=== PATIENT | female | born 1930 | race American Indian/Alaskan Native ===

== ENCOUNTER 2017-06-09 20:31 | Emergency (ER) | payer MEDICARE ==
[2017-06-09 20:53] VITALS: BP 192/78; PULSE 81; RESP 20; TEMP 98.7; O2SAT 97
--- NOTE | 2017-06-09 21:12 | C.PDOC ---
History Of Present Illness 86 year old female presents to the ER after she struck her left eyebrow on a dresser last night while walking to the bathroom. Denies LOC or change in mental status. Time Seen by Provider: 06/09/17 21:02 Chief Complaint (Nursing): Headache History Per: Patient History/Exam Limitations: no limitations Onset/Duration Of Symptoms: Days Current Symptoms Are (Timing): Still Present Preceeding Symptoms: None Associated Symptoms: denies: Photophobia, Blurred Vision, Nausea, Vomiting, Extremity Weakness Recent travel outside of the [place]: No Past Medical History Reviewed: Historical Data, Nursing Documentation, Vital Signs Vital Signs: Last Vital Signs Temp 98.7 F 06/09/17 20:32 Pulse 81 06/09/17 20:32 Resp 20 06/09/17 20:32 BP 192/78 H 06/09/17 20:32 Pulse Ox 97 06/09/17 21:12 - Medical History PMH: HTN Surgical History: No Surg Hx Family History: States: Unknown Family Hx - Social History Hx Alcohol Use: No Hx Substance Use: No Review Of Systems Eyes: Positive for: Vision Change Musculoskeletal: Positive for: Other (Chronic bilateral trapezius tenderness, take occasional ecotrin for pain) Skin: Positive for: Other (Contusion) Neurological: Negative for: Weakness, Numbness, Altered Mental Status, Dizziness Physical Exam - Physical Exam Appears: Non-toxic, No Acute Distress Skin: Normal Color, Warm, Dry Head: Normacephalic, Other (Sub centimeter contusion to left lateral eyebrow) Eye(s): bilateral: Normal Inspection, PERRL, EOMI Nose: Normal Oral Mucosa: Moist Neck: Normal, Supple Chest: Symmetrical, No Tenderness Cardiovascular: Rhythm Regular Respiratory: Normal Breath Sounds, No Rales, No Rhonchi, No Wheezing Gastrointestinal/Abdominal: Soft, No Tenderness Extremity: Normal ROM (x4) Neurological/Psych: Oriented x3, Normal Speech, Normal Cognition ED Course And Treatment O2 Sat by Pulse Oximetry: 97 (room air) Pulse Ox Interpretation: Normal Progress Note: Motrin administered. Medical Decision Making Medical Decision Making: superficial contusion to L eyebrow las night, no sig injury no s/s of brain injury chronic b/l trapezius tenderness, pending MRI later this week by PMD no indication for CT now, NSAIDS and ice therapy educated. Disposition Doctor Will See Patient In The: Office Counseled Patient/Family Regarding: Studies Performed, Diagnosis - Disposition Referrals: Rhianna Tijerina MD [Staff Provider] - Disposition: HOME/ ROUTINE Disposition Time: 21:11 Condition: GOOD Additional Instructions: continue ice therapy 1/2 hour per hour, nothing hot. Motrin 400-600 mg every 6 hours as needed for pain Follow-up with your PMD for outpatient MRI as needed. Instructions: Cervical Strain (DC), Contusion in Adults (ED) Forms: Mobile [employer] ([place]) - Clinical Impression Clinical Impression: Contusion of eyebrow, Trapezius muscle strain - Scribe Statement The provider has reviewed the documentation as recorded by the Scribe aEn Harvey All medical record entries made by the Scribe were at my direction and personally dictated by me. I have reviewed the chart and agree that the record accurately reflects my personal performance of the history, physical exam, medical decision making, and the department course for this patient. I have also personally directed, reviewed, and agree with the discharge instructions and disposition.
== END 2017-06-09 21:21 | disposition home or self-care (01) ==
LOC: C.ER 20:31
DX: S00.12XA Contusion of left eyelid and periocular area, initial encounter (principal); S16.1XXA Strain of muscle, fascia and tendon at neck level, initial encounter; W22.03XA Walked into furniture, initial encounter; Y93.89 Activity, other specified; Y92.008 Other place in unspecified non-institutional (private) residence as the place of occurrence of the external cause

== ENCOUNTER 2017-06-13 10:11 | Inpatient (IN) | payer OTHER ==
--- NOTE | 2017-06-13 11:27 | C.PDOC ---
History Of Present Illness 86 year old female presents to the ED for evaluation of generalized weakness and dizziness which began earlier today. Patient states she suffered a fall in her bathroom and hit the side of her head, and was evaluated in this ED on . Patient underwent MRI for her neck pain which she had been experiencing for "a while." Today, patient states she felt unwell while waiting at a bus stop earlier today. While she was at home, patient felt dizzy and like she "could not hold on" and dropped a glass of water. Patient denies chest pain, shortness of breath, extremity numbness/weakness. Time Seen by Provider: 06/13/17 10:38 Chief Complaint (Nursing): Weakness/Neurological Deficit History Per: Patient History/Exam Limitations: no limitations Current Symptoms Are (Timing): Still Present Possible Causative Factor(s): Decreased PO Intake Fall Associated With With Symptoms: Yes Past Medical History Reviewed: Historical Data, Nursing Documentation, Vital Signs Vital Signs: Last Vital Signs Temp 98.2 F 06/13/17 15:00 Pulse 76 06/13/17 15:00 Resp 20 06/13/17 15:00 BP 123/63 06/13/17 15:00 Pulse Ox 97 06/13/17 15:00 - Medical History PMH: HTN Surgical History: No Surg Hx Family History: States: Unknown Family Hx - Social History Hx Alcohol Use: No Hx Substance Use: No Review Of Systems Except As Marked, All Systems Reviewed And Found Negative. Constitutional: Positive for: Weakness Cardiovascular: Negative for: Chest Pain Respiratory: Negative for: Shortness of Breath Neurological: Positive for: Dizziness. Negative for: Weakness, Numbness Physical Exam - Physical Exam Appears: Non-toxic, No Acute Distress Skin: Normal Color, Warm, Dry, No Rash Head: Atraumatic, Normacephalic Eye(s): bilateral: Normal Inspection, PERRL, EOMI Oral Mucosa: Moist Neck: Normal ROM, Supple Chest: Symmetrical, No Deformity, No Tenderness Cardiovascular: Rhythm Regular, No Friction Rub, No Murmur Respiratory: Normal Breath Sounds, No Rales, No Rhonchi, No Wheezing Gastrointestinal/Abdominal: Soft, No Tenderness, No Guarding, No Rebound Back: No Vertebral Tenderness, No Paraspinal Tenderness Extremity: Normal ROM, Capillary Refill (less than 2 seconds ) Neurological/Psych: Oriented x3, Normal Speech, Normal Cognition, Normal Motor Gait: Steady ED Course And Treatment - Laboratory Results Result Diagrams: 06/13/17 11:32 06/13/17 11:32 O2 Sat by Pulse Oximetry: 98 (on RA) Pulse Ox Interpretation: Normal Medical Decision Making Medical Decision Making: Progress: Bloodwork, CXR, EKG, CT Head ordered and reviewed. On re-exam, the patient remains stable and is resting comfortably. No neuro deficits The case was discussed with Dr. Tijerina who agrees to admit the patient. Disposition - Disposition Disposition: HOSPITALIZED Disposition Time: 12:30 Condition: STABLE - POA Present On Arrival: None - Clinical Impression Clinical Impression: Weakness, Dizziness - PA / GOVERNMENT SERVICE EXECUTIVE / Resident Statement MD/DO has reviewed & agrees with the documentation as recorded. - Scribe Statement The provider has reviewed the documentation as recorded by the Scribe (Dee Dee Mcgrath) All medical record entries made by the Scribe were at my direction and personally dictated by me. I have reviewed the chart and agree that the record accurately reflects my personal performance of the history, physical exam, medical decision making, and the department course for this patient. I have also personally directed, reviewed, and agree with the discharge instructions and disposition.
[2017-06-13 11:37] LABS: BASO % 0.7 % (0.0-2.0); EOS # 0.1 K/uL (0.0-0.7); EOS % 2.8 % (0.0-4.0); HEMATOCRIT 35.8 % (34.0-47.0); LYMPH # 1.3 K/uL (1.0-4.3); LYMPH % 30.5 % (20.0-40.0); MEAN CELL VOLUME 104.4 fL (81.0-99.0); MEAN CORPUSCULAR HEMOGLOBIN 35.1 pg (27.0-31.0); MEAN CORPUSCULAR HGB CONC 33.6 g/dL (33.0-37.0); MEAN PLATELET VOLUME 8.7 fL (7.2-11.7); MONO # 0.6 K/uL (0.0-0.8); MONO % 12.8 % (0.0-10.0); NRBC % 0.1 % (0.0-2.0); WHITE BLOOD COUNT 4.4 K/uL (4.8-10.8)
[2017-06-13 11:54] LABS: ALKALINE PHOSPHATASE 73 U/L (38-126); ALT/SGPT 29 U/L (9-52); AST/SGOT 31 U/L (14-36); BILIRUBIN,TOTAL 0.8 mg/dL (0.2-1.3); BLOOD UREA NITROGEN 32 mg/dL (7-17); CARBON DIOXIDE 25 mmol/L (22-30); CHLORIDE 102 mmol/L (98-107); CHOLESTEROL 200 mg/dL (0-199); GFR AFRICAN-AMERICAN 43; GLUCOSE,RANDOM 66 mg/dL (65-105); POTASSIUM 4.8 mmol/L (3.6-5.2); SODIUM 137 mmol/L (132-148); TOTAL PROTEIN 8.4 g/dL (6.3-8.3)
--- NOTE | 2017-06-13 12:39 | CT ---
PROCEDURE: CT HEAD WITHOUT CONTRAST. HISTORY: weakness, head injury COMPARISON: None available. TECHNIQUE: Axial computed tomography images were obtained through the head/brain without intravenous contrast. Radiation dose: Total exam DLP = 720.92 mGy-cm. This CT exam was performed using one or more of the following dose reduction techniques: Automated exposure control, adjustment of the mA and/or kV according to patient size, and/or use of iterative reconstruction technique. FINDINGS: HEMORRHAGE: No intracranial hemorrhage. BRAIN: Diffuse atrophy with prominence of the ventricles and sulci noted. No mass effect or edema. Partially imaged dense lesion is noted measuring approximately 9 x 18 mm (series 4, image 1) at the level the foramen magnum/intradural medullary space at the origin of the cervical spine. This lesion abuts the upper cord of the cervical medullary junction but does not compress the upper cord. Mild scattered white matter hypodensities, which are nonspecific, but often seen with chronic microvascular ischemic disease. Please note that MRI with diffusion imaging is more sensitive in the detection of acute ischemic event. VENTRICLES: No hydrocephalus. CALVARIUM: Unremarkable. PARANASAL SINUSES: Unremarkable as visualized. No significant inflammatory changes. MASTOID AIR CELLS: Unremarkable as visualized. No inflammatory changes. OTHER FINDINGS: None. IMPRESSION: Partially imaged dense lesion is noted measuring approximately 9 x 18 mm at the level the foramen magnum/intradural medullary space at the origin of the cervical spine. This lesion abuts the upper cord of the cervical medullary junction but does not compress the upper cord. Recommend CT of the cervical spine for further evaluation. CTA may also be indicated for additional follow-up. Findings discussed with Paola Mirza on 06/13/17 at 12:37 p.m.
--- NOTE | 2017-06-13 13:55 | RAD ---
HISTORY: weakness, dizziness COMPARISON: Chest x-ray performed 08/16/16 TECHNIQUE: Chest, one view. FINDINGS: LUNGS: Biapical pleural thickening. No focal consolidation. Scattered probable tiny calcified granulomas. Please note that chest x-ray has limited sensitivity for the detection of pulmonary masses. PLEURA: No significant pleural effusion identified. No definite pneumothorax . CARDIOVASCULAR: Heart size appears top normal. Atherosclerotic calcifications of the aorta. OSSEOUS STRUCTURES: Degenerative changes. VISUALIZED UPPER ABDOMEN: Unremarkable. OTHER FINDINGS: None. IMPRESSION: Biapical pleural thickening. Scattered tiny probable calcified granulomas.
[2017-06-13 14:28] VITALS: RESP 20
[2017-06-13] MEDS ORDERED: Iodixanol 320 mg/ml 150 ml Bottle IV ONE (14:38)
--- NOTE | 2017-06-13 16:40 | CT ---
PROCEDURE: CT Angiography of the Brain. HISTORY: ? brain and cervical lesion COMPARISON: None available. TECHNIQUE: CT angiography of the intracranial arteries was performed. Coronal and sagittal maximum intensity projection reformated images were generated. Contrast administered: Visipaque 300, 100 cc. Total exam DLP dose 274.86 mGy-cm. This CT exam was performed using one or more of the following dose reduction techniques: Automated exposure control, adjustment of the mA and/or kV according to patient size, and/or use of iterative reconstruction technique. FINDINGS: The hyperdensity seen anterior to the cervicomedullary junction/ upper spinal cord immediately inferior to the foramen magnum a represent a hypertrophied transverse ligament of the C1-2 articulation. It does not enhance indicate an appears to correspond to normal location of the ligament in the reconstructed sagittal reformat. INTERNAL CEREBRAL ARTERIES: Unremarkable. The skull base, petrous, cavernous and supraclinoid segments are bilaterally widely patent. ANTERIOR CEREBRAL ARTERIES: Unremarkable. A1 and A2 segments are widely patent. Smaller distal branches unremarkable, as visualized. MIDDLE CEREBRAL ARTERIES: Unremarkable. M1 and M2 segments are widely patent. Perisylvian branches grossly symmetric. POSTERIOR CIRCULATION: Basilar Artery: Unremarkable. Distal Vertebral Arteries: Unremarkable. Posterior Cerebral Arteries: Unremarkable. Posterior Inferior Cerebellar Arteries: Not well identified. NECK CTA RESULTS: Common carotid arteries: The bilateral common carotid appear widely patent from their origins to their bifurcations with no significant stenosis appreciated. No evidence to suggest common carotid artery dissection. Internal carotid arteries: No significant stenosis is appreciated throughout the cervical internal carotid artery segments bilaterally and there is no evidence of dissection either. Vertebral arteries: The bilateral vertebral arteries appear normal in caliber from their origins to their junction with the basilar artery. Vertebrobasilar system appears left dominant. No significant stenosis or definite pattern of dissection. Incidentally, the bilateral subclavian arteries are widely patent as well as the brachiocephalic artery. ANEURYSM/ VASCULAR MALFORMATIONS: None. OTHER FINDINGS: None. IMPRESSION: Unremarkable CT Angiography of the Brain with probable prominence of the transverse ligament of the C1-2 articulation presenting as a hyperdense lesion anterior to upper cervical cord/ medullocervical junction. As per above. Final characterization may be provided by MRI without contrast of cervical spine.
--- NOTE | 2017-06-13 19:16 | CP.PCM.HP ---
History of Present Illness - History of Present Illness History of Present Illness: feels dizzy weeke unbalaced head and neck pain Present on Admission - Present on Admission Any Indicators Present on Admission: No Review of Systems - Review of Systems Systems not reviewed;Unavailable: Acuity of Condition - Constitutional Constitutional: Anorexia - EENT Eyes: As Per HPI Ears: As Per HPI, Dizziness Nose/Mouth/Throat: As Per HPI - Breasts Breasts: As Per HPI - Cardiovascular Cardiovascular: As Per HPI - Respiratory Respiratory: As Per HPI - Gastrointestinal Gastrointestinal: As Per HPI - Genitourinary Genitourinary: As Per HPI - Reproductive: Female Reproductive:Female: Post Menopausal - Menstruation Menstruation: Post Menopausal - Musculoskeletal Musculoskeletal: Arthralgias - Integumentary Integumentary: As Per HPI - Neurological Neurological: Dizziness, Weakness - Psychiatric Psychiatric: As Per HPI - Endocrine Endocrine: As Per HPI - Hematologic/Lymphatic Hematologic: As Per HPI Past Patient History - Infectious Disease Hx of Infectious Diseases: None - Past Medical History & Family History Past Medical History?: Yes - Past Social History Smoking Status: Former Smoker - CARDIAC Hx Hypertension: Yes - PULMONARY Hx Respiratory Disorders: No - NEUROLOGICAL Hx Neurological Disorder: No - HEENT Hx HEENT Problems: No - RENAL Hx Chronic Kidney Disease: No - ENDOCRINE/METABOLIC Hx Endocrine Disorders: No - HEMATOLOGICAL/ONCOLOGICAL Hx Blood Disorders: No - INTEGUMENTARY Hx Dermatological Problems: No - MUSCULOSKELETAL/RHEUMATOLOGICAL Hx Musculoskeletal Disorders: No Hx Falls: Yes - GASTROINTESTINAL Hx Gastrointestinal Disorders: No - GENITOURINARY/GYNECOLOGICAL Hx Genitourinary Disorders: No - PSYCHIATRIC Hx Substance Use: No - SURGICAL HISTORY Hx Surgeries: No - ANESTHESIA Hx Anesthesia: No Meds Allergies/Adverse Reactions: Allergies Allergy/AdvReac Type Severity Reaction Status Date / Time No Known Allergies Allergy Unverified 06/09/17 20:36 Physical Exam - Constitutional Appears: Non-toxic, In Acute Distress - Head Exam Head Exam: ATRAUMATIC - Eye Exam Eye Exam: Normal appearance Pupil Exam: NORMAL ACCOMODATION - ENT Exam ENT Exam: Mucous Membranes Moist - Neck Exam Neck exam: Positive for: Tenderness - Respiratory Exam Respiratory Exam: Clear to Auscultation Bilateral - Cardiovascular Exam Cardiovascular Exam: REGULAR RHYTHM - GI/Abdominal Exam GI & Abdominal Exam: Normal Bowel Sounds - Rectal Exam Rectal Exam: NORMAL INSPECTION - Extremities Exam Extremities exam: Positive for: normal inspection - Back Exam Back exam: NORMAL INSPECTION - Neurological Exam Neurological exam: Abnormal Gait, Oriented x3 - Psychiatric Exam Psychiatric exam: Normal Affect - Skin Skin Exam: Normal Color Results - Vital Signs Recent Vital Signs: Last Vital Signs Temp 98.2 F 06/13/17 15:00 Pulse 76 06/13/17 15:00 Resp 20 06/13/17 15:00 BP 123/63 06/13/17 15:00 Pulse Ox 98 06/13/17 18:43 - Labs Result Diagrams: 06/13/17 11:32 06/13/17 11:32 Labs: Laboratory Results - last 24 hr 06/13/17 06/13/17 06/13/17 11:23 11:32 11:32 WBC 4.4 L RBC 3.43 L Hgb 12.0 Hct 35.8 MCV 104.4 H MCH 35.1 H MCHC 33.6 RDW 13.0 Plt Count 247 MPV 8.7 Neut % (Auto) 53.2 Lymph % (Auto) 30.5 [place] % (Auto) 12.8 H Eos % (Auto) 2.8 Baso % (Auto) 0.7 Neut # 2.3 Lymph # 1.3 [place] # 0.6 Eos # 0.1 Baso # 0.0 PT 11.2 INR 1.0 APTT 26 Sodium Potassium Chloride Carbon Dioxide Anion Gap BUN Creatinine Est GFR ( Amer) Est GFR (Non-Af Amer) POC Glucose (mg/dL) 77 Random Glucose Calcium Total Bilirubin AST ALT Alkaline Phosphatase Troponin I Total Protein Albumin Globulin Albumin/Globulin Ratio Triglycerides Cholesterol LDL Cholesterol Direct HDL Cholesterol 06/13/17 11:32 WBC RBC Hgb Hct MCV MCH MCHC RDW Plt Count MPV Neut % (Auto) Lymph % (Auto) [place] % (Auto) Eos % (Auto) Baso % (Auto) Neut # Lymph # [place] # Eos # Baso # PT INR APTT Sodium 137 Potassium 4.8 Chloride 102 Carbon Dioxide 25 Anion Gap 15 BUN 32 H Creatinine 1.4 H Est GFR ( Amer) 43 Est GFR (Non-Af Amer) 35 POC Glucose (mg/dL) Random Glucose 66 Calcium 9.0 Total Bilirubin 0.8 AST 31 ALT 29 Alkaline Phosphatase 73 Troponin I < 0.0120 Total Protein 8.4 H Albumin 4.3 Globulin 4.1 H Albumin/Globulin Ratio 1.0 Triglycerides 101 Cholesterol 200 H LDL Cholesterol Direct 140 H HDL Cholesterol 50 Assessment & Plan - Assessment and Plan (Free Text) Assessment: ac dizziness [place] unbalanced gaite mass brain Plan: had mri neck will obtain repiort neurology consult and as per orders - Date & Time Date: 06/13/17 Time: 19:19
--- NOTE | 2017-06-14 01:02 | CP.PCM.CON ---
History of Present Illness - History of Present Illness History of Present Illness: 86 year old female presents to the ED for evaluation of generalized weakness and dizziness which began earlier today. Patient states she suffered a fall in her bathroom and hit the side of her head, and was evaluated in this ED on 06/09. Patient underwent MRI for her neck pain which she had been experiencing for "a while." Today, patient states she felt unwell while waiting at a bus stop earlier today. While she was at home, patient felt dizzy and like she "could not hold on" and dropped a glass of water. Patient denies chest pain , shortness of breath, extremity numbness/weakness. Chief Complaint (Nursing): Weakness/Neurological Deficit History Per: Patient History/Exam Limitations: no limitations Current Symptoms Are (Timing): Still Present Possible Causative Factor(s): Decreased PO Intake Fall Associated With With Symptoms: Yes Past Medical History Reviewed: Historical Data, Nursing Documentation, Vital Signs Vital Signs: Last Vital Signs Temp 98.2 F 06/13/17 15:00 Pulse 76 06/13/17 15:00 Resp 20 06/13/17 15:00 BP 123/63 06/13/17 15:00 Pulse Ox 97 06/13/17 15:00 - Medical History PMH: HTN Surgical History: No Surg Hx Family History: States: Unknown Family Hx Social History Hx Alcohol Use: No Hx Substance Use: No Review Of Systems Except As Marked, All Systems Reviewed And Found Negative. Constitutional: Positive for: Weakness Cardiovascular: Negative for: Chest Pain Respiratory: Negative for: Shortness of Breath Neurological: Positive for: Dizziness. Negative for: Weakness, Numbness Physical Exam - Physical Exam Appears: Non-toxic, No Acute Distress Skin: Normal Color, Warm, Dry, No Rash Head: Atraumatic, Normacephalic Eye(s): bilateral: Normal Inspection, PERRL, EOMI Oral Mucosa: Moist Neck: Normal ROM, Supple Chest: Symmetrical, No Deformity, No Tenderness Cardiovascular: Rhythm Regular, No Friction Rub, No Murmur Respiratory: Normal Breath Sounds, No Rales, No Rhonchi, No Wheezing Gastrointestinal/Abdominal: Soft, No Tenderness, No Guarding, No Rebound Back: No Vertebral Tenderness, No Paraspinal Tenderness Extremity: Normal ROM, Capillary Refill (less than 2 seconds ) Neurological/Psych: Oriented x3, Normal Speech, Normal Cognition, Normal Motor Gait: Steady Clinical Impression: Weakness, Dizziness IMPRESSION of CT Brain: Partially imaged dense lesion is noted measuring approximately 9 x 18 mm at the level the foramen magnum/intradural medullary space at the origin of the cervical spine. This lesion abuts the upper cord of the cervical medullary junction but does not compress the upper cord. Recommend CT of the cervical spine for further evaluation. CTA may also be indicated for additional follow- up. IMPRESSION of CT Angiography of the Brain: Unremarkable CT Angiography of the Brain with probable prominence of the transverse ligament of the C1-2 articulation presenting as a hyperdense lesion anterior to upper cervical cord/ medullocervical junction. As per above. Final characterization may be provided by MRI without contrast of cervical spine. IMPRESSION of CXR: Biapical pleural thickening. Scattered tiny probable calcified granulomas. Past Patient History - Infectious Disease Hx of Infectious Diseases: None - Past Medical History & Family History Past Medical History?: Yes - Past Social History Smoking Status: Former Smoker - CARDIAC Hx Hypertension: Yes - PULMONARY Hx Respiratory Disorders: No - NEUROLOGICAL Hx Neurological Disorder: No - HEENT Hx HEENT Problems: No - RENAL Hx Chronic Kidney Disease: No - ENDOCRINE/METABOLIC Hx Endocrine Disorders: No - HEMATOLOGICAL/ONCOLOGICAL Hx Blood Disorders: No - INTEGUMENTARY Hx Dermatological Problems: No - MUSCULOSKELETAL/RHEUMATOLOGICAL Hx Musculoskeletal Disorders: No Hx Falls: Yes - GASTROINTESTINAL Hx Gastrointestinal Disorders: No - GENITOURINARY/GYNECOLOGICAL Hx Genitourinary Disorders: No - PSYCHIATRIC Hx Substance Use: No - SURGICAL HISTORY Hx Surgeries: No - ANESTHESIA Hx Anesthesia: No Meds Allergies/Adverse Reactions: Allergies Allergy/AdvReac Type Severity Reaction Status Date / Time No Known Allergies Allergy Unverified 06/09/17 20:36 - Medications Medications: Current Medications Acetaminophen (Tylenol 325mg Tab) 650 mg PO Q6 PRN PRN Reason: Pain, moderate (4-7) Amlodipine Besylate (Norvasc) 5 mg PO DAILY JOSE EDUARDO Pneumococcal Polyvalent Vaccine (Pneumovax 23 Vaccine) 0.5 ml IM .ONCE ONE Stop: 06/15/17 10:01 Results - Vital Signs Recent Vital Signs: Last Vital Signs Temp 98.2 F 06/13/17 15:00 Pulse 76 06/13/17 15:00 Resp 20 06/13/17 15:00 BP 123/63 06/13/17 15:00 Pulse Ox 98 06/13/17 18:43 - Labs Result Diagrams: 06/13/17 11:32 06/13/17 11:32 Labs: Laboratory Results - last 24 hr 06/13/17 06/13/17 06/13/17 11:23 11:32 11:32 WBC 4.4 L RBC 3.43 L Hgb 12.0 Hct 35.8 MCV 104.4 H MCH 35.1 H MCHC 33.6 RDW 13.0 Plt Count 247 MPV 8.7 Neut % (Auto) 53.2 Lymph % (Auto) 30.5 Haines % (Auto) 12.8 H Eos % (Auto) 2.8 Baso % (Auto) 0.7 Neut # 2.3 Lymph # 1.3 Haines # 0.6 Eos # 0.1 Baso # 0.0 PT 11.2 INR 1.0 APTT 26 Sodium Potassium Chloride Carbon Dioxide Anion Gap BUN Creatinine Est GFR ( Amer) Est GFR (Non-Af Amer) POC Glucose (mg/dL) 77 Random Glucose Calcium Total Bilirubin AST ALT Alkaline Phosphatase Troponin I Total Protein Albumin Globulin Albumin/Globulin Ratio Triglycerides Cholesterol LDL Cholesterol Direct HDL Cholesterol 06/13/17 11:32 WBC RBC Hgb Hct MCV MCH MCHC RDW Plt Count MPV Neut % (Auto) Lymph % (Auto) Haines % (Auto) Eos % (Auto) Baso % (Auto) Neut # Lymph # Haines # Eos # Baso # PT INR APTT Sodium 137 Potassium 4.8 Chloride 102 Carbon Dioxide 25 Anion Gap 15 BUN 32 H Creatinine 1.4 H Est GFR ( Amer) 43 Est GFR (Non-Af Amer) 35 POC Glucose (mg/dL) Random Glucose 66 Calcium 9.0 Total Bilirubin 0.8 AST 31 ALT 29 Alkaline Phosphatase 73 Troponin I < 0.0120 Total Protein 8.4 H Albumin 4.3 Globulin 4.1 H Albumin/Globulin Ratio 1.0 Triglycerides 101 Cholesterol 200 H LDL Cholesterol Direct 140 H HDL Cholesterol 50 Assessment & Plan (1) Dizziness Assessment and Plan: R/O Seizures R/O Cervical Radiculopathy Status: Acute (2) Weakness Status: Acute (3) Contusion of eyebrow Status: Acute (4) CVA (cerebral vascular accident) Assessment and Plan: Get MRI Brain, if there is no contraindications Carotid Doppler W/U for CVA Status: Acute (5) Post-concussion vertigo Assessment and Plan: Is a major Possibility Status: Acute (6) Seizures Assessment and Plan: EEG will be helpful Status: Acute
--- NOTE | 2017-06-14 11:02 | CARD ---
APPROVED REPORT EKG Measurement Heart [id number] <Conclusion> Sinus rhythm with short NC Voltage criteria for left ventricular hypertrophy Abnormal ECG
--- NOTE | 2017-06-14 11:57 | CP.PCM.PN ---
Subjective - Date & Time of Evaluation Date of Evaluation: 06/14/17 Time of Evaluation: 11:55 - Subjective Subjective: PT STILL C/O OF HEADECK AND DIZZINESS LEASION FORAMEN MAGNUM Objective - Vital Signs/Intake and Output Vital Signs (last 24 hours): Temp Pulse Resp BP Pulse Ox 97.5 F L 68 20 150/78 98 06/14/17 07:44 06/14/17 07:44 06/14/17 07:44 06/14/17 07:44 06/14/17 07:44 Intake and Output: 06/14/17 06/14/17 06:59 18:59 Intake Total 700 Balance 700 - Medications Medications: Current Medications Acetaminophen (Tylenol 325mg Tab) 650 mg PO Q6 PRN PRN Reason: Pain, moderate (4-7) Last Admin: 06/14/17 10:48 Dose: 650 mg Amlodipine Besylate (Norvasc) 5 mg PO DAILY [facility] Last Admin: 06/14/17 10:47 Dose: 5 mg Sodium Chloride (Sodium Chloride 0.9%) 1,000 mls @ 60 mls/hr IV .[id number] [facility] Pneumococcal Polyvalent Vaccine (Pneumovax 23 Vaccine) 0.5 ml IM .ONCE ONE Stop: 06/15/17 10:01 - Labs Labs: 06/13/17 11:32 06/13/17 11:32 PT 11.2 SECONDS (9.7-12.2) 06/13/17 11:32 INR 1.0 06/13/17 11:32 APTT 26 SECONDS (21-34) 06/13/17 11:32 - Constitutional Appears: Non-toxic - Head Exam Head Exam: NORMAL INSPECTION - Eye Exam Eye Exam: Normal appearance Pupil Exam: NORMAL ACCOMODATION - ENT Exam ENT Exam: Mucous Membranes Moist - Neck Exam Neck Exam: Full ROM - Respiratory Exam Respiratory Exam: NORMAL BREATHING PATTERN - Cardiovascular Exam Cardiovascular Exam: REGULAR RHYTHM - GI/Abdominal Exam GI & Abdominal Exam: Normal Bowel Sounds - Rectal Exam Rectal Exam: NORMAL INSPECTION - Exam Exam: NORMAL INSPECTION External exam: NORMAL EXTERNAL EXAM - Extremities Exam Extremities Exam: Normal Inspection - Back Exam Back Exam: NORMAL INSPECTION - Neurological Exam Neurological Exam: Alert, Oriented x3 - Psychiatric Exam Psychiatric exam: Normal Mood - Skin Skin Exam: Normal Color Assessment and Plan - Assessment and Plan (Free Text) Assessment: AC DIZZINESS HEADEACK MACROINDESIS R/O B12 DEF HI PROTEIN R/O MYLOMA Plan: MRI AND C SPINE AND LAB AND PT
[2017-06-14] MEDS: Sodium Chloride 0.9% 1,000 ML IV SCH ×2 (13:57→15:30)
--- NOTE | 2017-06-14 14:55 | MRI ---
PROCEDURE: MRI BRAIN WITHOUT CONTRAST HISTORY: ? Lesion COMPARISON: None. TECHNIQUE: Multiplanar, multisequence MR images of the brain were obtained without intravenous contrast enhancement. FINDINGS: HEMORRHAGE: None DWI: No evidence of an acute or early subacute infarction. BRAIN PARENCHYMA: No mass effect or edema. Mild atrophy and moderate white matter changes likely represent chronic microvascular ischemic disease. VENTRICLES: Unremarkable. No hydrocephalus. CRANIUM: Unremarkable. ORBITS: Grossly unremarkable. PARANASAL SINUSES/MASTOIDS: Clear VASCULAR SYSTEM: Skull base flow voids intact. OTHER FINDINGS: None. IMPRESSION: No evidence of acute pathology in the brain. No evidence in of mass lesion mass effect or midline shift. Mild atrophy and [id number]-[id number] white matter changes likely represent chronic microvascular ischemic disease.
--- NOTE | 2017-06-14 15:47 | MRI ---
PROCEDURE: MR CERVICAL SPINE WITHOUT CONTRAST HISTORY: ?lesion COMPARISON: None available. TECHNIQUE: Multiecho multiplanar sequences were performed through the cervical spine without the use of intravenous contrast. FINDINGS: There is straightening of the mid cervical curvature without fracture or spondylolisthesis identified. Advanced multilevel C7-T1 and C2-3 somewhat. C1-2 articulation is degenerated with the craniocervical junction intact. Prevertebral paraspinal soft tissues appear diffusely unremarkable. The cervical spinal cord appears normal in signal but appears diminished in volume due to significant stenoses at multiple levels C2-C3: No disc herniation, spinal canal stenosis or neural foraminal narrowing. C3-C4: A disc osteophyte complex causes mild central stenosis compresses the cord without cord reaction. [id number] ligamentous hypertrophy is identified posteriorly as well. No disc herniation. Neural foramina appear widely patent. C4-C5: An additional disc osteophyte complex results in mild central canal stenosis compressing the cervical cord mildly without cord reaction appreciated. Mild ligamentous hypertrophy is noted posteriorly. No disc herniation. Neural foramina are widely patent. C5-C6: An additional disc osteophyte is seen compressing the cervical cord without cord reaction, causing mild central canal stenosis. Mild ligamentous hypertrophy is noted posteriorly. No significant neural foraminal stenosis. No disc herniation. C6-C7: A disc osteophyte complex encroaches the ventral cervical cord without cord compression or significant stenosis resulting. Borderline bilateral neural foraminal stenosis identified. No disc herniation. C7-T1: No disc herniation, spinal canal stenosis or neural foraminal narrowing. OTHER FINDINGS: None. IMPRESSION: Multilevel disc osteophyte complexes as well as the posterior ligamentous hypertrophy causes mild central canal stenosis from C3-4-C5-6 with the cervical spinal cord appearing mildly flattened/compressed as result but without cord reaction. No definitive disc herniation or severe stenosis appreciated throughout.
[2017-06-14 17:53] LABS: FOLATE > 20.0 ng/mL
--- NOTE | 2017-06-15 03:18 | CP.PCM.PN ---
Subjective - Date & Time of Evaluation Date of Evaluation: 06/14/17 Time of Evaluation: 22:25 - Subjective Subjective: She feels better and has less Headache and less Vertigo and is able to talk. She said her left sided weakness and dropping Cups and objects from her left hand and tendency to fall to the Left has disappeared. Objective - Vital Signs/Intake and Output Vital Signs (last 24 hours): Temp Pulse Resp BP Pulse Ox 97.9 F 63 20 151/68 H 98 06/15/17 00:00 06/15/17 00:00 06/15/17 00:00 06/15/17 00:00 06/15/17 00:00 Intake and Output: 06/14/17 06/15/17 18:59 06:59 Intake Total 850 Balance 850 - Medications Medications: Current Medications Acetaminophen (Tylenol 325mg Tab) 650 mg PO Q6 PRN PRN Reason: Pain, moderate (4-7) Last Admin: 06/14/17 10:48 Dose: 650 mg Amlodipine Besylate (Norvasc) 5 mg PO DAILY [facility] Last Admin: 06/14/17 10:47 Dose: 5 mg Sodium Chloride (Sodium Chloride 0.9%) 1,000 mls @ 60 mls/hr IV .[id number] [facility] Last Admin: 06/14/17 15:30 Dose: 60 mls/hr Pneumococcal Polyvalent Vaccine (Pneumovax 23 Vaccine) 0.5 ml IM .ONCE ONE Stop: 06/15/17 10:01 - Labs Labs: 06/13/17 11:32 06/13/17 11:32 PT 11.2 SECONDS (9.7-12.2) 06/13/17 11:32 INR 1.0 06/13/17 11:32 APTT 26 SECONDS (21-34) 06/13/17 11:32 - Neurological Exam Additional comments: Physical exam Mental Status: Patient is awake, alert, Oriented x 3 Normal memory X3 normal cognition fluent coherent speech Cranial nerves II to XII: No Deficits, normal eye pupils, EOM are moving the eyes normally No facial asymmetry central tongue normal gag Motor: Normal Tone, Power is 5-/5 Symmetrically DTR 0 to 1/4 Toes were down going by plantar stimulation Sensory: No deficits Cerebellar: Cooperative and had normal FNT. Stature and Gait: Not tested, but she says she walks without any help. Assessment and Plan (1) Dizziness Assessment & Plan: Vertigo might be related to her Post Concussion or her Cervical Radiculopathy Status: Acute (2) Weakness Status: Acute (3) Contusion of eyebrow Status: Acute (4) CVA (cerebral vascular accident) Assessment & Plan: R/O CVA, TIA, as a cause of her transient left sided weakness that lasted several hours. Status: Acute (5) Post-concussion vertigo Assessment & Plan: It might be the reason for her Headache as Post traumatic vascular Headache. We will R/O Temporal Arteritis by ESR, CRP and following the clinical picture Status: Acute (6) Seizures Assessment & Plan: as a cause of Transient Left sided weakness. Get EEG Status: Acute
[2017-06-15] MEDS: Sodium Chloride 0.9% 1,000 ML IV SCH (05:30)
[2017-06-15 08:13] VITALS: PULSE 70; O2SAT 96
[2017-06-15 09:39] VITALS: BP 130/78; TEMP 98
[2017-06-15] MEDS ORDERED: Influenza Vaccine 60 mcg/0.5 mL SYR (4YR UP) IM ONE (10:00)
[2017-06-15] MEDS ORDERED: Pneumococcal 23-Valent Vaccine IM ONE (10:00)
--- NOTE | 2017-06-15 10:00 | CP.PCM.PN ---
Subjective - Date & Time of Evaluation Date of Evaluation: 06/15/17 Time of Evaluation: 09:58 - Subjective Subjective: ocasional headeack no dizziness Objective - Vital Signs/Intake and Output Vital Signs (last 24 hours): Temp Pulse Resp BP Pulse Ox 98 F 70 20 130/78 96 06/15/17 09:38 06/15/17 08:12 06/15/17 08:12 06/15/17 09:38 06/15/17 08:12 Intake and Output: 06/15/17 06/15/17 06:59 18:59 Intake Total 300 Balance 300 - Medications Medications: Current Medications Acetaminophen (Tylenol 325mg Tab) 650 mg PO Q6 PRN PRN Reason: Pain, moderate (4-7) Last Admin: 06/14/17 10:48 Dose: 650 mg Amlodipine Besylate (Norvasc) 5 mg PO DAILY [facility] Last Admin: 06/15/17 09:35 Dose: 5 mg Sodium Chloride (Sodium Chloride 0.9%) 1,000 mls @ 60 mls/hr IV .[id number] [facility] Last Admin: 06/15/17 05:30 Dose: 60 mls/hr Pneumococcal Polyvalent Vaccine (Pneumovax 23 Vaccine) 0.5 ml IM .ONCE ONE Stop: 06/15/17 10:01 Last Admin: 06/15/17 09:33 Dose: Not Given - Labs Labs: 06/13/17 11:32 06/13/17 11:32 PT 11.2 SECONDS (9.7-12.2) 06/13/17 11:32 INR 1.0 06/13/17 11:32 APTT 26 SECONDS (21-34) 06/13/17 11:32 - Constitutional Appears: Non-toxic - Head Exam Head Exam: NORMAL INSPECTION - Eye Exam Eye Exam: Normal appearance Pupil Exam: NORMAL ACCOMODATION - ENT Exam ENT Exam: Mucous Membranes Moist - Neck Exam Neck Exam: Full ROM - Respiratory Exam Respiratory Exam: Clear to Ausculation Bilateral - Cardiovascular Exam Cardiovascular Exam: REGULAR RHYTHM - GI/Abdominal Exam GI & Abdominal Exam: Normal Bowel Sounds - Rectal Exam Rectal Exam: NORMAL INSPECTION - Exam Exam: NORMAL INSPECTION External exam: NORMAL EXTERNAL EXAM - Extremities Exam Extremities Exam: Normal Inspection - Back Exam Back Exam: NORMAL INSPECTION - Neurological Exam Neurological Exam: Normal Gait, Oriented x3 - Psychiatric Exam Psychiatric exam: Normal Affect - Skin Skin Exam: Normal Color Assessment and Plan - Assessment and Plan (Free Text) 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
--- NOTE | 2017-06-15 10:47 | CP.PCM.PN ---
Subjective - Date & Time of Evaluation Date of Evaluation: 06/15/17 Time of Evaluation: 10:47 - Subjective Subjective: PATIENT WAS ADMITTED FOR DIZZINESS AND HEADACHE AAOX 3 NO SIGN OF DISTRESS NOTED Objective - Vital Signs/Intake and Output Vital Signs (last 24 hours): Temp Pulse Resp BP Pulse Ox 98 F 70 20 130/78 96 06/15/17 09:38 06/15/17 08:12 06/15/17 08:12 06/15/17 09:38 06/15/17 08:12 Intake and Output: 06/15/17 06/15/17 06:59 18:59 Intake Total 300 Balance 300 - Medications Medications: Current Medications Acetaminophen (Tylenol 325mg Tab) 650 mg PO Q6 PRN PRN Reason: Pain, moderate (4-7) Last Admin: 06/14/17 10:48 Dose: 650 mg Amlodipine Besylate (Norvasc) 5 mg PO DAILY [facility] Last Admin: 06/15/17 09:35 Dose: 5 mg Sodium Chloride (Sodium Chloride 0.9%) 1,000 mls @ 60 mls/hr IV .[id number] [facility] Last Admin: 06/15/17 05:30 Dose: 60 mls/hr - Labs Labs: 06/13/17 11:32 06/13/17 11:32 PT 11.2 SECONDS (9.7-12.2) 06/13/17 11:32 INR 1.0 06/13/17 11:32 APTT 26 SECONDS (21-34) 06/13/17 11:32 Assessment and Plan - Assessment and Plan (Free Text) Assessment: PATIENT IS SEEN BY DR HARRELL AND CLEAR THE PATIENT FOR DC FOLLOW UP WITH DR HARRELL IN A WEEK ----CALL HER OFFICE FOR APPOINTMENT CONTINUE YOUR HOME MEDS PER MED RECS NEW RX GIVEN BY DR HARRELL TYLENOL 650 MG FOR HEADACHE FOR FURTHER QUESTION CALL DR HARRELL CALL HER OFFICE OR GO TO ER IF SYMPTOMS RETURN OR WORSENING
[2017-06-16 07:38] LABS: TOTAL PROTEIN, SERUM 7.4 g/dL (6.1-8.1)
== END 2017-06-15 14:23 | disposition home or self-care (01) | DRG 149 ==
LOC: C.ER 10:11 → C.9E 13:15 → C.3T 13:29
PROVIDERS: ADMIT Internal Medicine; ATTEND Internal Medicine
DX: R42 Dizziness and giddiness (principal); F07.81 Postconcussional syndrome; M47.892 Other spondylosis, cervical region; I10 Essential (primary) hypertension; R56.9 Unspecified convulsions; R29.6 Repeated falls; Z87.891 Personal history of nicotine dependence